=== PATIENT | male | born 1940 | race Asian ===

== ENCOUNTER 2016-12-03 10:00 | Outpatient (RCR) | payer OTHER | END 2016-12-04 | disposition home or self-care (01) | LOC: PTY 10:00 | PROVIDERS: ATTEND Internal Medicine | DX: M54.5 Low back pain (principal); M54.2 Cervicalgia ==

== ENCOUNTER 2016-12-10 12:25 | Outpatient (RCR) | payer OTHER | END 2017-01-03 | disposition home or self-care (01) | LOC: PTY 12:25 | PROVIDERS: ATTEND Internal Medicine | DX: M54.5 Low back pain (principal); M54.2 Cervicalgia; M62.838 Other muscle spasm | CPT/HCPCS: 97110; 97140; G0283 ==

== ENCOUNTER 2017-01-14 10:49 | Outpatient (RCR) | payer OTHER | END 2017-02-03 | disposition home or self-care (01) | LOC: PTY 10:49 | PROVIDERS: ATTEND Internal Medicine | DX: M54.5 Low back pain (principal); M54.2 Cervicalgia ==